=== PATIENT | female | born 1980 | race Caucasian/White ===

== ENCOUNTER 2016-12-09 18:05 | Emergency (ER) | payer OTHER ==
[~2016-12-09] VITALS: Ht 170.2 cm; Wt 76.8 kg
[~2016-12-09 18:05] MED LIST: ALBUTEROL; FLOMAX0.4 MG PO; NAPROSYN500 MG PO; PERCOCET 5/31 TABLET PO; TRAMADOL HCL50 MG PO; ULTRAM50 MG PO; ZOFRAN4 MG PO
[2016-12-09 22:19] VITALS: BP 130/79
== END 2016-12-09 22:20 | disposition home or self-care (01) ==
LOC: EME 18:05 → RME 18:05
DX: G89.18 Other acute postprocedural pain (principal); M79.601 Pain in right arm
CPT/HCPCS: 93971; 99281; 99284